=== PATIENT | female | born 1990 | race Two or more races ===

== ENCOUNTER 2025-07-25 00:55 | Emergency (ER) | payer MEDICAID, OTHER ==
[~2025-07-25] VITALS: Ht 154.9 cm; Wt 78.1 kg
--- NOTE | 2025-07-25 01:34 | ED.PDOC ---
History of Present Illness HPI Comments Patient is a 34-year-old female with past medical history of vertigo who comes in due to dysuria and burning upon urination that has been ongoing for the past 3 days. According to the patient, today she started experiencing back pain which she describes as stiffness like, sharp, constant, 8/10 in intensity wi thout any exacerbating or relieving factors which is what prompted this visit to the ED. Patient notes she recently went to an urgent care center where she was discharged with antibiotics, however, patient never picked up the antibiotics. Associated symptoms include nausea without vomiting. Denies having similar symptoms in the past. On review of systems patient is complaining of nausea, dysuria and burning urination. Chief Complaint: Flank Pain Time Seen by MD: 01:10 Allergies: Coded Allergies: No Known Drug Allergy (Verified Allergy, Unknown, 07/25/25) Information Source: Patient Mode of Arrival: Ambulatory Severity: Mild, Moderate Timing: Days Duration: Since onset Prehospital treatment: None Past Medical History PAST MEDICAL HISTORY: Denies Past Medical History (Contd): Vertigo Surgical History: Denies all surgeries Family History Family History: Reviewed,noncontributory to illness Social History Smoker: Non-Smoker Alcohol: Occasionally Drugs: Denies Drug Use Lives In: Home Constitutional: denies: chills, diaphoresis, fatigue, fever, malaise, sweats, weakness, others EENTM: denies: blurred vision, double vision, ear bleeding, ear discharge, ear drainage, ear pain, ear ringing, eye pain, eye redness, hearing loss, mouth pain, mouth swelling, nasal discharge, nose bleeding, nose congestion, nose pain, photophobia, tearing, throat pain, throat swelling, voice changes, others Respiratory: denies: cough, hemoptysis, orthopnea, SOB at rest, shortness of breath, SOB with excertion, stridor, wheezing, others Cardiovascular: denies: chest pain, dizzy spells, diaphoresis, Dyspnea on exertion, edema, irregular heart beat, left arm pain, lightheadedness, palpitations, PND, syncope, others Gastrointestinal: reports: nausea; denies: abdomen distended, abdominal pain, blood streaked bowels, constipated, diarrhea, dysphagia, difficulty swallowing, hematemesis, melena, poor appetite, poor fluid intake, rectal bleeding, rectal pain, vomiting, others Genitourinary: reports: dysuria; denies: abnormal vagina bleeding, burning, dyspareunia, flank pain, frequency, hematuria, incontinence, pain, , vagina discharge, urgency, others Neurological: denies: dizziness, fainting, headache, left sided numbness, left sided weakness, numbness, paresthesia, pre-existing deficit, right sided numbness, right sided weakness, seizure, speech problems, tingling, tremors, weakness, others Musculoskeletal: denies: back pain, gout, joint pain, joint swelling, muscle pain, muscle stiffness, neck pain, others Integumetry: denies: bruises, change in color, change in hair/nails, dryness, laceration, lesions, lumps, rash, wounds, others Allergic/Immunocompromised: denies: Difficulty Healing, Frequent Infections, Hives, Itching, others Hematologic/Lymphatic: denies: anemia, blood clots, easy bleeding, easy bruising, swollen glands, others Endocrine: denies: excessive hunger, excessive sweating, excessive thirst, excessive urination, flushing, intolerance to cold, intolerance to heat, unexplained weight gain, unexplained weight loss, others Psychiatric: denies: anxiety, bipolar disorder, depression, hopeless, panic disorder, schizophrenia, sleepless, suicidal, others Physical Exam General Appearance: Mild Distress HEENT: Normal ENT Inspection, PERRL/EOMI Neck: Non-Tender, Normal, Normal Inspection Respiratory: Chest Non-Tender, Lungs Clear, No Respiratory Distress Cardiovascular: No Edema, No JVD, No Murmur, Regular Rate/Rhythm Breast Exam: Deferred Gastrointestinal: Non Tender, Other (Bilateral costovertebral angle tenderness to palpation, no suprapubic tenderness, no flank tenderness to palpation) Genitalia: Deferred Pelvic: Deferred Rectal: Rectal Exam not done Extremities: No calf tenderness, Normal range of motion, Non-tender, No pedal edema Neurologic: Alert, No Motor Deficits, Normal Mood, No Sensory Deficits Cerebellar Function: Normal Reflexes: NOT DONE Skin: Dry, Normal Color Peripheral Pulses: 2+ dorsalis pedis (R), 2+ dorsalis pedis (L) Lymphatic: NOT DONE Was a procedure done? Was a procedure done?: No Differential Dx Considerations may include: Urinary tract infection Cystitis Dysmenorrhea Musculoskeletal strain X-Ray, Labs, Meds, VS Vital Signs Date Time Temp Pulse Resp B/P (MAP) Pulse Ox O2 Delivery O2 Flow Rate FiO2 07/25/25 03:35 97.7 80 18 131/95 (107) 98 97.7 07/25/25 03:35 80 18 98 Room Air* 0 21 07/25/25 01:56 98.8 07/25/25 00:57 98.6 73 20 166/103 96 98.6 Lab Test 07/25/25 01:46 07/25/25 01:32 Range/Units White Blood Count 10.8 4.4-10.8 10^3/uL Red Blood Count 4.65 4.0-5.20 10^6/uL Hemoglobin 13.1 12.2-16.2 g/dL Hematocrit 39.4 36.0-46.0 % Mean Corpuscular Volume 84.8 80.0-100.0 fL Mean Corpuscular Hemoglobin 28.1 28.0-32.0 pg Mean Corpuscular Hemoglobin Concent 33.1 32.0-36.0 g/dL Red Cell Distribution Width 14.0 11.8-14.3 % Platelet Count 341 140-450 10^3/uL Mean Platelet Volume 7.8 6.9-10.8 fL Neutrophils (%) (Auto) 70.8 37.0-80.0 % Lymphocytes (%) (Auto) 20.5 10.0-50.0 % Monocytes (%) (Auto) 7.2 0.0-12.0 % Eosinophils (%) (Auto) 1.0 0.0-7.0 % Basophils (%) (Auto) 0.5 0.0-2.0 % Neutrophils # (Auto) 7.7 1.6-8.6 10 ^3/uL Lymphocytes # (Auto) 2.2 0.4-5.4 10 ^3/uL Monocytes # (Auto) 0.8 0-1.3 10 ^3/uL Eosinophils # (Auto) 0.1 0-0.8 10 ^3/uL Basophils # (Auto) 0.1 0-0.2 10 ^3/uL Nucleated Red Blood Cells 0.0 % Sodium Level 138 136-145 mmol/L Potassium Level 3.7 3.5-5.1 mmol/L Chloride Level 102 98-107 mmol/L Carbon Dioxide Level 26 20-31 mmol/L Anion Gap 10 5-15 Blood Urea Nitrogen 10 9-23 mg/dL Creatinine 0.84 0.550-1.02 mg/dL Glomerular Filtration Rate Calc 94 >90 mL/min BUN/Creatinine Ratio 11.9 10.0-20.0 Serum Glucose 101 74-106 mg/dL Calcium Level 9.6 8.7-10.4 mg/dL Urine Color Light-yellow Yellow Urine Clarity Clear Clear Urine pH 5.5 5.0-9.0 Urine Specific [place] 1.008 1.001-1.035 Urine Protein 1+ H Negative Urine Ketones Negative Negative Urine Blood 3+ H Negative /uL Urine Nitrite Negative Negative Urine Bilirubin Negative Negative Urine Urobilinogen Normal Negative mg/dL Urine Leukocyte Esterase 2+ Negative /uL Urine RBC 23 0 - 4 /hpf Urine Microscopic WBC 46 H 0-5 /HPF Urine Squamous Epithelial Cells Few <5 /hpf Urine Bacteria None seen None Seen /hpf Urine Glucose Normal Normal mg/dL Urine Test Negative Negative Current Medications Medications (Trade) Dose Ordered Sig/Magy Route Start Time Stop Time Status Last Admin Acetaminophen (Tylenol Tablet) 650 mg ONCE ONCE PO 07/25/25 01:45 07/25/25 01:46 DC 07/25/25 01:56 Nitrofurantoin Macrocrystals (Macrobid) 100 mg ONCE ONCE PO 07/25/25 03:00 07/25/25 03:01 DC 07/25/25 03:24 Time of 1ST Reevaluation: 02:30 Reevaluation 1ST: Improved Patient Education/Counseling: Diagnosis, Treatment, Prognosis, Need For Follow Up Family Education/Counseling: Diagnosis, Treatment, Prognosis, Need For Follow Up SEPSIS Sepsis Screen Date sepsis recognized/suspect: Jul 25, 2025 Time Sepsis recognized/suspect: 010 Recent Procedure: No On Antibiotic Therapy: No Respiratory Rate >20: No Heart Rate >90: No Temp<36 C (96.8 F) or >38.3 C: No SBP <90 or MAP <65 mmHG: No New Acute Mental Status Change: No Is the patient on CPAP, BIPAP,: No Vital Signs Date Time Temp Pulse Resp B/P (MAP) Pulse Ox O2 Delivery O2 Flow Rate FiO2 07/25/25 03:35 97.7 80 18 131/95 (107) 98 97.7 07/25/25 03:35 80 18 98 Room Air* 0 21 07/25/25 01:56 98.8 07/25/25 00:57 98.6 73 20 166/103 96 98.6 Laboratory Tests Test 07/25/25 01:46 White Blood Count 10.8 10^3/uL (4.4-10.8) Medications Medications Dose Ordered Sig/Magy Route Start Time Stop Time Status Last Admin Dose Admin Acetaminophen 650 mg ONCE ONCE PO 07/25/25 01:45 07/25/25 01:46 DC 07/25/25 01:56 Nitrofurantoin Macrocrystals 100 mg ONCE ONCE PO 07/25/25 03:00 07/25/25 03:01 DC 07/25/25 03:24 Departure 1 Departure Time of Disposition: 03:00 (34-year-old female presenting for back pain, dysuria, already diagnosed with a UTI for the same symptoms, however, has not yet started antibiotics. Patient arrives hemodynamically stable here. Does not appear septic upon arrival. Urinalysis does show leukocyte esterase with some RBCs likely related to current menstrual cycle, however, does have white blood cells as well, given her symptoms will be treated for likely simple UTI. Was given the 1st dose of Macrobid here. Patient appears comfortable, does not have any severe fluctuating intensifying pain, no known history of nephrolithiasis, does not seem consistent with renal colic. Does not require any advanced imaging as I do not suspect nephrolithiasis or in or pyelonephritis or infected stone. Patient was treated here for discomfort with IV Toradol, IV Zofran, oral Tylenol. Was given the 1st dose of Macrobid here. Stable for discharge further outpatient management. Will be given a prescription for a 5 day course of antibiotics (Macrobid). Advised to take NSAIDs as needed for discomfort.) Impression: Primary Impression: Urinary tract infection Qualified Codes: N39.0 - Urinary tract infection, site not specified Additional Impressions: Cystitis Dysmenorrhea Disposition: HOME / SELF CARE / HOMELESS Condition: Stable e-Prescriptions Nitrofurantoin Monohydrate Mac (Macrobid) 100 Mg Cap 100 MG PO BID for 5 Days, #9 CAP Prov: SHAWNA QUINTANA MD 07/25/25 Discharged With: Self Comments Patient noted to have significant improvement in back pain as well as nausea. Stable vital signs, pain is managed, UA showing UTI. Patient was discharged home on nitrofurantoin 100 mg b.i.d. for 5 days, 1st dose was given in the ER. Patient was instructed to come back to the ER if symptoms recur or persist or if symptoms including but not limited to fever, chills, worsening flank or back pain occur, patient demonstrated understanding. Critical Care Note Critical Care Time?: No Stability Stability form required: ALVA Vivar Jul 25, 2025 01:34 SHAWNA QUINTANA MD Jul 25, 2025 03:50
[2025-07-25] MEDS: ONDANSETRON HCL 4 MG/2 ML VIAL IV ONE (01:45)
[2025-07-25] MEDS: KETOROLAC TROMETH 30 MG/ML 1ML VIAL IV ONE (01:45)
[2025-07-25] MEDS: ACETAMINOPHEN 325 MG TAB PO ONE (01:56)
[2025-07-25 01:59] LABS: Hematocrit 39.4 % (36.0-46.0); Hemoglobin 13.1 g/dL (12.2-16.2); Mean Corpuscular Hemoglobin 28.1 pg (28.0-32.0); Mean Corpuscular Volume 84.8 fL (80.0-100.0); Nucleated Red Blood Cells % 0.0 %
[2025-07-25 02:07] LABS: Chloride 102 mmol/L (98-107); Potassium 3.7 mmol/L (3.5-5.1); Sodium 138 mmol/L (136-145)
[2025-07-25 02:08] LABS: Anion Gap 10 (5-15); Calcium 9.6 mg/dL (8.7-10.4); Carbon Dioxide 26 mmol/L (20-31)
[2025-07-25 02:13] LABS: BUN/Creatinine Ratio 11.9 (10.0-20.0); Blood Urea Nitrogen 10 mg/dL (9-23); Glucose 101 mg/dL (74-106)
[2025-07-25 02:38] LABS: Urine Protein, UAD 1+ (Negative)
[2025-07-25 03:35] VITALS: BP 131/95; PULSE 80; RESP 18; TEMP 97.7; O2SAT 98
[2025-07-25] MEDS ORDERED: NITR-87 PO (03:46)
== END 2025-07-25 03:45 | disposition home or self-care (01) ==
LOC: ER 00:55
DX: N30.90 Cystitis, unspecified without hematuria (principal); N94.6 Dysmenorrhea, unspecified
CPT/HCPCS: 36415; 80048; 81001; 81025; 85025